=== PATIENT | female | born 1950 | race Caucasian/White ===

== ENCOUNTER 2016-10-21 05:04 | Day surgery (SDC) | payer MEDICARE, BC ==
[~2016-10-21] VITALS: Ht 167.6 cm; Wt 99.8 kg
[~2016-10-21 05:04] MED LIST: ASA5GR PO; ASABAYER PO; CIP5 PO; CRESTOR10 PO; CYANO1000T PO; DIOVAN HCT160 MG/25 PO; FISH OIL1200 MG PO; FISH-EPA1000 MG PO; GINKGO BILO2 PO; HYDROCHLOROT12.5 MG PO; HYDROCHLOROT25 MG PO; LIPITOR20 PO; LIPOTRIAD1 CAP; LOTREL1 CA2 PO; MOBIC7.5 PO; NORV5 PO; PROTONIX PO; TURMERIC PO; VALTREX5 PO; VITAMIN C; VITC500 PO
== END 2016-10-21 07:08 | disposition home or self-care (01) ==
LOC: SDC 05:04
PROVIDERS: Orthopaedic Surgery
PROC: 3E0R33Z Introduction of Anti-inflammatory into Spinal Canal, Percutaneous Approach (ICD-10-PCS; 2016-10-21)
PROC: B01BYZZ Fluoroscopy of Spinal Cord using Other Contrast (ICD-10-PCS; 2016-10-21)
PROC: 3E0R3BZ Introduction of Anesthetic Agent into Spinal Canal, Percutaneous Approach (ICD-10-PCS; principal; 2016-10-21 07:00)
DX: M54.16 Radiculopathy, lumbar region (principal); Z79.1 Long term (current) use of non-steroidal anti-inflammatories (NSAID); Z79.899 Other long term (current) drug therapy; Z88.5 Allergy status to narcotic agent; Z87.891 Personal history of nicotine dependence; Z90.710 Acquired absence of both cervix and uterus; Z90.49 Acquired absence of other specified parts of digestive tract; Z98.1 Arthrodesis status; Z98.41 Cataract extraction status, right eye; Z98.42 Cataract extraction status, left eye; Z96.1 Presence of intraocular lens; Z98.890 Other specified postprocedural states
CPT/HCPCS: J1040; J2250; J3010; Q9967